=== PATIENT | male | born 1965 | race Caucasian/White ===

== ENCOUNTER 2020-06-06 16:00 | Outpatient (REF) | payer OTHER, SELFPAY ==
--- NOTE | ~2020-06-06 | XR_ITS ---
EXAMINATION: BILATERAL FOOT X-RAY CLINICAL INFORMATION: Pain COMPARISON: None TECHNIQUE: 3 views of both feet FINDINGS: Bone alignment is normal. No fracture or dislocation is seen. There is mild joint space narrowing of both first MTP joint. There is a small radiopaque density probably representing soft tissue calcification adjacent to the right calcaneus seen on the lateral view. There are some small radiopaque densities projecting over the plantar surface of the right foot at the MTP joints seen on the lateral view as well. XR/XR foot RT min 3V IMPRESSION: Mild joint space narrowing at the bilateral first MTP joints.
--- NOTE | ~2020-06-06 | XR_ITS ---
EXAMINATION: BILATERAL FOOT X-RAY CLINICAL INFORMATION: Pain COMPARISON: None TECHNIQUE: 3 views of both feet FINDINGS: Bone alignment is normal. No fracture or dislocation is seen. There is mild joint space narrowing of both first MTP joint. There is a small radiopaque density probably representing soft tissue calcification adjacent to the right calcaneus seen on the lateral view. There are some small radiopaque densities projecting over the plantar surface of the right foot at the MTP joints seen on the lateral view as well. XR/XR foot LT min 3V IMPRESSION: Mild joint space narrowing at the bilateral first MTP joints.
== END 2020-06-06 16:01 | disposition home or self-care (01) ==
LOC: HO.XRAY 16:00
PROVIDERS: PCP Internal Medicine; Visit Provider Internal Medicine
DX: M79.672 Pain in left foot (principal); M79.671 Pain in right foot
CPT/HCPCS: 73630

== ENCOUNTER 2020-06-07 09:09 | Outpatient (REF) | payer OTHER, SELFPAY ==
[2020-06-07 09:37] LABS: MANUAL DIFF FLAG NO
[2020-06-07 09:56] LABS: Basophils Percent Auto 0.6 % (0-2); Eosinophils Absolute Auto 0.2 X10*3/uL (0.0-0.4); Eosinophils Percent Auto 4.8 % (0-4); Hematocrit 47.8 % (42-52); Hemoglobin 15.9 g/dl (14.0-18.0); Imm Gran Abs Auto 0.02 X10*3/uL (0.00-0.03); Imm Gran Pct Auto 0.4 % (0.0-0.4); Lymphocytes Absolute Auto 1.1 X10*3/uL (1.2-4.9); Lymphocytes Percent Auto 21.8 % (20-40); Mean Corpuscular HGB Conc 33.3 g/dl (31.0-36.0); Mean Corpuscular Hemoglobin 30.8 pg (27.0-33.0); Mean Corpuscular Volume 92.6 fL (80-98); Mean Platelet Volume 11.3 fL (9.4-12.4); Monocytes Absolute Auto 0.4 X10*3/uL (0.1-1.2); Monocytes Percent Auto 8.8 % (2-11); Neutrophils Absolute Auto 3.2 X10*3/uL (2.0-8.3); Neutrophils Percent Auto 63.6 % (45-73); Platelet Count 202 X10*3/uL (160-400); Red Blood Count 5.16 X10*6/uL (4.60-5.80); Red Cell Distribution Width 11.9 % (11.0-16.0)
[2020-06-07 10:19] LABS: Alanine Aminotransferase 39 U/L (0-40); Albumin Level 4.3 g/dL (3.5-5.0); Alkaline Phosphatase 68 U/L (39-117); Anion Gap 11 (12-20); Aspartate Amino Transferase 21 U/L (5-37); Bilirubin Total 0.8 mg/dL (0.0-1.0); Blood Urea Nitrogen 18 mg/dL (9-16); Calcium 9.1 mg/dL (8.4-10.2); Carbon Dioxide 30 mmol/L (22-29); Chloride 105 mmol/L (96-108); Cholesterol 181 mg/dL; Estimated Glomerular Filt Rate > 60; Glucose Fasting 98 mg/dL (60-99); HDL Cholesterol 60 mg/dL; LDL Cholesterol Calculated 106 mg/dl; Potassium 4.8 mmol/L (3.3-5.1); Sodium 141 mmol/L (135-145); Total Protein 6.7 g/dL (6.5-8.0); Triglycerides 76 mg/dL
[2020-06-07 10:42] LABS: Prostate Specific Antigen 0.43 ng/mL (<0.05-4.0)
== END 2020-06-07 09:10 | disposition home or self-care (01) ==
LOC: HO.LAB 09:09
PROVIDERS: PCP Internal Medicine; Visit Provider Internal Medicine
DX: Z00.00 Encounter for general adult medical examination without abnormal findings (principal); Z12.5 Encounter for screening for malignant neoplasm of prostate
CPT/HCPCS: 36415; 80053; 80061; 84153; 85025

== ENCOUNTER 2020-06-11 08:02 | Outpatient (REF) | payer OTHER, SELFPAY ==
--- NOTE | 2020-06-11 12:17 | MHC.AU.P13 ---
Adult Audiological Evaluation Date of Visit: 06/11/20 Bait Man Used: Not Applicable Reason for Appointment: Audiologic evaluation due to increasing difficulties hearing and understanding speech. 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 History: History: No Medical History: Experiences frequent congestion Medication List: Multi-vitamin, Glucosamine, Tumeric Otoscopy: Right Ear: Unremarkable Left Ear: Unremarkable Tympanometry: Tympanometry performed due to: To assess integrity of the middle ear system Right Ear: Normal Middle Ear System (Type A) Left Ear: Normal Middle Ear System (Type A) Otoacoustic Emissions Frequency Range Used: 1.6-8 kHz Right Ear Results: Absent Emissions Analysis: Reduced/Absent emissions suggest cochlear dysfunction Left Ear Results: Absent Emissions Analysis: Reduced/Absent emissions suggest cochlear dysfunction Hearing Evaluation: Transducer(s) Used: Insert Earphones Bone Conduction Method: Conventional Audiometry Stimuli Used: Pure Tones Right Ear: Description of Hearing: Normal hearing threshold at 250 Hz sloping to a moderate high frequency sensorineural hearing loss Left Ear: Description of Hearing: Normal hearing threshold at 250 Hz sloping to a moderate-severe high frequency sensorineural hearing loss Speech Recognition Threshold (SRT): Method Used: Monitored Live Voice Stimuli Used: Spondee Words Right Ear: 40 dB HL Left Ear: 40 dB HL Word Discrimination: Method: Recorded Lists Word Lists Used: NU-6 Right Ear: 84% at 65 dB HL 100% at 75 dB HL Left Ear: 76% at 70 dB HL 84% at 80 dB HL Most Comfortable Level (MCL): Right Ear: 65 dB HL Left Ear: 70 dB HL Recommendations: Audiological re-evaluation in one year. Trial with amplification is recommended. Medical clearance from a physician is required before fitting. Selwyn has a pair of [id number] hearing aids worn by his mother. Recommend he schedule an appointment and bring the hearing aids with him to determine if he can use these hearing aids. Diagnosis: Primary Diagnosis: H90.3 Bilateral Sensorineural Hearing Loss Secondary Diagnosis: H93.13 Tinnitus, Bilateral Services Performed: Comprehensive Audiological Evaluation (CPT 63720) Diagnostic Otoacoustic Emissions (CPT 97758, 26+TC) Tympanometry (CPT 29060) Signature: Provider: Carmen Shell, CCC-A
--- NOTE | 2020-06-11 12:20 | MHC.AU.MED ---
Medical Clearance for Hearing Instrumentation Date: 06/11/20 Patient Name: Selwyn Coronado JR Date of : 1965 Primary Care Provider: Referring Provider: Jose Benton MD We have seen your patient on 06/11/20 and have determined that they are a candidate for amplification (See accompanying report). Specifically, they would benefit from: Hearing aid use in both ears There is a statute that addresses Medical Evaluation Requirements prior to fitting a patient with a hearing aid. According to [place] statute 265 CMR:6.03(1), (a) General. Except as provided in 265 CMR 6.03(1)(b), a admission liaison shall not sell a hearing aid unless the prospective user has presented to the admission liaison a written statement signed by a licensed physician that states that the patient's hearing loss has been medically evaluated and the patient may be considered a candidate for a hearing aid. The medical evaluation must have taken place within the preceding six months. Please note: Due to the [place] Statute referenced above, we cannot accept a signature other than that of a licensed physician. BLENDING MACHINE FEEDER and PA signatures cannot be accepted. I am in agreement with the above recommendation. There is no medical contraindication for hearing instrumentation. Physician Signature Date Physician Name (Printed)
== END 2020-06-11 08:03 | disposition home or self-care (01) ==
LOC: HO.SH 08:02
PROVIDERS: Visit Provider Internal Medicine
DX: H90.3 Sensorineural hearing loss, bilateral (principal); H93.13 Tinnitus, bilateral
CPT/HCPCS: 92557; 92567; 92588

== ENCOUNTER 2020-06-14 09:53 | Outpatient (REF) | payer SELFPAY ==
--- NOTE | 2020-06-14 11:48 | MHC.AU.HFU ---
Hearing Instrument Follow-Up- Binaural Date of Visit: 06/14/20 Right Ear: Contact Representative: Phonak Model: Bolero V 50-P Serial Number: [id number] Repair Warranty: Battery Size: 13 Color: Silver Dunlap Tubing: #2 slim tube Type of Dome: Small Power Type of Wax Guard: None Left Ear: Contact Representative: Phonak Model: Bolero V 50-P Serial Number: [id number] Repair Warranty: Battery Size: 13 Color: Silver Dunlap Tubing: #2 slim tube Type of Dome: Small Power Type of Wax Guard: None Follow-Up Summary: Patient brought in his mother's old [place] [facility] [place] Care. Placed slim tubes and domes. Ran feedback test and Real Ear making adjustments to better meet targets. Forgot to turn off Sound Recover during Real Ear measurements so high frequencies are not meeting targets. Activated volume control and Mute program. Practiced battery change, insertion, volume and program change, patient doing well while in office. Provided handouts. Recommendations: Recommendations: Hearing instrument follow-up or maintenance as needed. Please contact our clinic with any questions or concerns. Patient has 2 programming appointments available. He did not want to schedule an appointment at this time. Diagnosis Code(s): Primary Diagnosis: H90.3 Bilateral Sensorineural Hearing Loss Secondary Diagnosis: H93.13 Tinnitus, Bilateral Services Performed: PEÑALOZA Non-Quantity Charges: [facility]AFOC Transfer of Care Signature: Provider: Carmen Shell, [facility]
== END 2020-06-14 09:54 | disposition home or self-care (01) ==
LOC: HO.HAP 09:53
PROVIDERS: Visit Provider Internal Medicine
DX: Z46.1 Encounter for fitting and adjustment of hearing aid (principal); H90.3 Sensorineural hearing loss, bilateral; H93.13 Tinnitus, bilateral
CPT/HCPCS: V5011

== ENCOUNTER 2021-02-25 16:43 | Outpatient (REF) | payer OTHER, SELFPAY ==
[2021-02-25 17:35] LABS: Influenza A PCR NEGATIVE (Negative); Influenza B PCR NEGATIVE (Negative); Resp Syncy Virus RNA Qual PCR NEGATIVE (Negative); SARS COV2 PCR INHOUSE POSITIVE (Negative)
== END 2021-02-25 16:44 | disposition home or self-care (01) ==
LOC: HO.LNP 16:43
PROVIDERS: Visit Provider Nurse Practitioner Family
DX: Z20.822 Contact with and (suspected) exposure to COVID-19 (principal); R09.81 Nasal congestion; R53.83 Other fatigue
CPT/HCPCS: 0241U

== ENCOUNTER 2021-03-11 15:58 | Outpatient (REF) | payer OTHER, SELFPAY ==
[2021-03-11 16:43] LABS: Influenza A PCR NEGATIVE (Negative); Influenza B PCR NEGATIVE (Negative); Resp Syncy Virus RNA Qual PCR NEGATIVE (Negative); SARS COV2 PCR INHOUSE POSITIVE (Negative)
== END 2021-03-11 15:59 | disposition home or self-care (01) ==
LOC: HO.LNP 15:58
PROVIDERS: Visit Provider Internal Medicine
DX: Z20.822 Contact with and (suspected) exposure to COVID-19 (principal); R05.9 Cough, unspecified
CPT/HCPCS: 0241U

== ENCOUNTER 2022-02-18 09:38 | Outpatient (REF) | payer OTHER, SELFPAY ==
--- NOTE | ~2022-02-18 | XR_ITS ---
EXAMINATION: XR SHOULDER, RIGHT CLINICAL INFORMATION: Fall. Pain. COMPARISON: None TECHNIQUE: AP external rotation, Grashey, scapular Y, and axillary views of the right shoulder. FINDINGS: Bone alignment is normal. No fracture or dislocation. The glenohumeral joint is normal. There is arthritis at the acromial clavicular joint. Soft tissues are unremarkable. XR/XR shoulder RT min 2V IMPRESSION: No fracture or dislocation. Arthritis at the acromioclavicular joint.
== END 2022-02-18 09:39 | disposition home or self-care (01) ==
LOC: HO.XRAY 09:38
PROVIDERS: PCP Internal Medicine; Visit Provider Internal Medicine
DX: M25.511 Pain in right shoulder (principal); Z91.81 History of falling
CPT/HCPCS: 73030

== ENCOUNTER 2022-03-25 09:31 | Outpatient (REF) | payer OTHER, SELFPAY ==
[2022-03-25 09:40] LABS: MANUAL DIFF FLAG NO
[2022-03-25 11:06] LABS: Basophils Absolute Auto 0.1 X10*3/uL (0.0-0.2); Eosinophils Absolute Auto 0.2 X10*3/uL (0.0-0.4); Eosinophils Percent Auto 3.7 % (0-4); Hematocrit 48.6 % (42.0-52.0); Hemoglobin 16.6 g/dl (14.0-18.0); Imm Gran Abs Auto 0.03 X10*3/uL (0.00-0.03); Imm Gran Pct Auto 0.6 % (0.0-0.4); Lymphocytes Absolute Auto 1.1 X10*3/uL (1.2-4.9); Lymphocytes Percent Auto 21.7 % (20-40); Mean Corpuscular HGB Conc 34.2 g/dl (31.0-36.0); Mean Corpuscular Volume 90.7 fL (80.0-98.0); Mean Platelet Volume 11.4 fL (9.4-12.4); Monocytes Absolute Auto 0.5 X10*3/uL (0.1-1.2); Monocytes Percent Auto 10.4 % (2-11); Neutrophils Absolute Auto 3.1 x10*3/uL (2.0-8.3); Neutrophils Percent Auto 62.6 % (45-73); Platelet Count 181 X10*3/uL (160-400); Red Blood Count 5.36 X10*6/uL (4.60-5.80); Red Cell Distribution Width 11.8 % (11.0-16.0); White Blood Count 4.9 X10*3/uL (4.8-10.8)
[2022-03-25 11:43] LABS: Alanine Aminotransferase 39 U/L (0-40); Anion Gap 13 (12-20); Aspartate Amino Transferase 24 U/L (5-37); Bilirubin Total 0.6 mg/dL (0.0-1.0); Blood Urea Nitrogen 18 mg/dL (9-16); Calcium 9.2 mg/dL (8.4-10.2); Carbon Dioxide 29 mmol/L (22-29); Chloride 106 mmol/L (96-108); Estimated Glomerular Filt Rate > 60; Glucose Fasting 95 mg/dL (60-99); Potassium 4.6 mmol/L (3.3-5.1); Sodium 143 mmol/L (135-145)
[2022-03-25 11:44] LABS: Albumin Level 4.3 g/dL (3.5-5.0); Alkaline Phosphatase 71 U/L (39-117); Cholesterol 179 mg/dL; HDL Cholesterol 58 mg/dL; LDL Cholesterol Calculated 108 mg/dl; Total Protein 6.5 g/dL (6.5-8.0); Triglycerides 65 mg/dL
== END 2022-03-25 09:32 | disposition home or self-care (01) ==
LOC: HO.LAB 09:31
PROVIDERS: PCP Internal Medicine; Visit Provider Internal Medicine
DX: Z00.00 Encounter for general adult medical examination without abnormal findings (principal); Z12.5 Encounter for screening for malignant neoplasm of prostate
CPT/HCPCS: 36415; 80053; 80061; 84153; 85025

== ENCOUNTER 2024-09-11 08:47 | Outpatient (AMB) | payer OTHER, SELFPAY ==
--- NOTE | 2024-09-11 08:41 | MHC.PC.OV ---
Vital Signs 09/11/24 08:53 Height 5 ft 7.5 in Weight 186 lb BMI 28.7 BP 134/82 Blood Pressure Location Lt brachial Position Sitting Pulse 96 Pulse Source Pulse Oximeter Temp 98.1 F Temp Source Axillary Pulse Oximetry (%) 98 Oxygen Delivery Method Room Air Intake Visit Reasons: Annual Tea And Spice Supervisor Required: No Accompanied by: Self / Same As Patient Allergies No Known Allergies Allergy (Verified 09/11/24 09:25) Medication List - Last Reconciled 09/11/24 by Michael Melendez MD fluticasone propionate 50 mcg/actuation (Flonase Allergy Relief) 1 spray intranasal DAILY Tobacco use date assessed: 09/11/24 Dental Screening Dental Screen Date: 09/11/24 Did you have a dental visit in the last 12 months?: Yes Did you have a dental problem in the last 6 months where you did not have access to dental care?: No [facility] Medical History (Updated 09/11/24 @ 09:11 by Michael Melendez MD) Osteoarthritis Hyperlipidemia Surgical History History of colonoscopy (~11/26/17) Family History (Updated 09/11/24 @ 08:57 by Meryl Alberts MA) Mother No problems noted. Father No problems noted. Social History Housing: House Patient Tobacco Use Status: Never used Tobacco e-Cigarette/Vaping Use: Never Used service: No Current occupational status: employed Cognitive needs: No Hearing needs: Yes (bilateral hearing aids) Vision needs: Yes (reading glasses) Questionnaire PHQ-9 Over the last 2 weeks, how often have you been bothered by any of the following problems? 1. Little interest or pleasure in doing things: not at all 2. Feeling down, depressed, or hopeless: not at all 3. Trouble falling or staying asleep, or sleeping too much: not at all 4. Feeling tired or having little energy: not at all 5. Poor appetite or overeating: not at all 6. Feeling bad about yourself - or that you are a failure or have let yourself or your family down: not at all 7. Trouble concentrating on things, such as reading the newspaper or watching television: not at all 8. Moving or speaking so slowly that other people could have noticed. Or the opposite - being so fidgety or restless that you have been moving around a lot more than usual: not at all 9. Thoughts that you would be better off or of hurting yourself in some way: not at all Total score: 0 Depression Screening Interpretation: Negative Depression Screening Done: Yes Source: Developed by Drs. Barrett Arias, Joycelyn Love, Gabe Laboy and colleagues, with an educational kalin from [employer]. Thrive Questionnaire Date Thrive assessed: 09/11/24 I am a: Patient Within the past 12 months, did the food you bought not last and you didn't have the money to get more?: Never true Within the past 12 months, did you worry whether your food would run out before you got money to buy more?: Never true Do you have trouble paying for medicines?: No Do you have trouble getting transportation to medical appointments?: No Do you have trouble paying your heating and electricity bill?: No Do you have trouble taking care of your child, family member or friend?: No Do you have trouble with day-to-day activities such as bathing, preparing meals, shopping, managing finances, etc.?: No Are you currently unemployed and looking for a job?: No Are you interested in more education?: No Currently or been in a relationship where the following occur: No concerns reported THRIVE Score: 0 AUDIT C Alcohol Use Questionnaire (AUDIT-C) 1. How often do you have a drink containing alcohol?: Monthly or less 2. How many drinks containing alcohol do you have on a typical day when you are drinking?: 1 or 2 3. How often do you have six or more drinks on one occasion?: Less than monthly Total Score: 2 LUIS-7 AMB Questionnaire LUIS-7 Date LUIS - 7 assessed: 09/11/24 Feeling nervous, anxious, or on edge: 0 = Not at all Not being able to stop or control worryin = Not at all Worrying too much about different things: 0 = Not at all Trouble relaxin = Not at all Being so restless that it is hard to sit still: 0 = Not at all Becoming easily annoyed or irritable: 0 = Not at all Feeling afraid as if something awful might happen: 0 = Not at all Total LUIS-7 score (0-4 normal; 5-9 mild; 10-14 moderate; 15-21 severe): 0 Source: Developed by Drs. Barrett Arias, Joycelyn Love, Gabe Laboy and colleagues, with an educational kalin from [employer]. Physical exam (Primary Care) Vital Signs: Last Vital Signs Temp 98.1 F 09/11/24 08:53 Pulse 96 09/11/24 08:53 BP 134/82 09/11/24 08:53 Pulse Ox 98 09/11/24 08:53 Oxygen Delivery Method Room Air 09/11/24 08:53 Care Plan Goal for BP management: BP is in range BMI result Body Mass Index 28.7 Tobacco/Smoking Status: Tobacco use Status Tobacco use date assessed 09/11/24 09/11/24 08:42 Patient Tobacco Use Status Never used Tobacco 09/11/24 08:42 e-Cigarette/Vaping Use Never Used 09/11/24 08:42 PHQ-9: PHQ-9 Score PHQ-9: Total score 0 09/11/24 08:42 Depression Screening Interpretation: Negative Thrive Assessment: Date of Thrive Assessment Date Thrive assessed 09/11/24 09/11/24 08:42 Currently or been in a relationship where the following occur: No concerns reported Advance Care Planning discussion: Exists, not on file Date of discussion: 09/11/24 Who was present: Patient Forms completed: Health Care Proxy and MOLST Time spent: 1-15 minutes, not on file Actual minutes spent: 5 Coding Level of Care Code New Pt Level 4 (72892) Complex EM visit Add On G2211 Diagnoses Hyperlipidemia E78.5 Osteoarthritis M19.90 Additional Codes Vital Signs *Quality* - Advance Care Planning discussion: Exists, not on file ([id number]) Vital Signs *Quality* - Time spent: 1-15 minutes, not on file ([id number]) Assessment & Plan Assessment & Plan (1) Hyperlipidemia: Code(s): E78.5 - Hyperlipidemia, unspecified Category: Medical Plan: BW has been ordered. Will call with results (2) Osteoarthritis: Code(s): M19.90 - Unspecified osteoarthritis, unspecified site Category: Medical Plan: ES Tylenol suggested. If sx do not improve, to follow up here. Plan History of Present Illness - The patient is a 58-year-old male presenting with management of osteoarthritis and musculoskeletal injuries. - Osteoarthritis in the feet is managed with ibuprofen, though the patient is advised to try Extra Strength Tylenol. - A rotator cuff tear was diagnosed with x-ray, managed with physical therapy, resulting in improved range of motion. - The patient reports a triceps tendon tear, manageable without significant intervention. - ACL and meniscus tears in the knee have been present for 15 years, with surgical intervention deferred. - The patient remains active in construction work, performing daily activities without significant limitation. - Vision impairment is noted, with corrective lenses in use. - A history of colonic polyps necessitates a follow-up colonoscopy. 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 - Family status: The patient is and lives with his . Review of Systems - Musculoskeletal: Reports arthritis in feet, rotator cuff tear, triceps tendon tear, ACL and meniscus tears. - Neurological: Denies any significant weakness or functional limitation. - Gastrointestinal: Denies abdominal pain. - Ophthalmologic: Reports vision impairment, uses corrective lenses. Physical Exam General: Cooperative and healthy appearing Nutritional Appearance: Well nourished Orientation/consciousness: Patient oriented x3 Limitations: No limitations Head: Normal to inspection General: Appearance normal, both eyes and all related structures Neck: Normal visual inspection Chest: Normal palpation of entire chest wall Respiratory: N ormal respiratory effort Neurology: Patient oriented x3, but reports vision is getting worse and is wearing glasses. Results Plan 1. Osteoarthritis - The patient is advised to switch from ibuprofen to Extra Strength Tylenol for pain management. 2. Rotator Cuff Tear - Managed with physical therapy, resulting in improved range of motion. 3. Triceps Tendon Tear - The condition is manageable without significant intervention. 4. Acl Tear - Surgical intervention is deferred, with the patient managing symptoms conservatively. 5. Meniscus Tear - Surgical intervention is deferred, with the patient managing symptoms conservatively. 6. Vision Impairment - The patient uses corrective lenses to manage vision impairment. 7. Preventative Care: Colonoscopy - A follow-up colonoscopy is recommended due to a history of colonic polyps. Discussion Notes I discussed with the patient the importance of managing osteoarthritis with appropriate medication, suggesting a switch to Extra Strength Tylenol to minimize potential side effects of ibuprofen. We reviewed the management of his rotator cuff tear, emphasizing the benefits of physical therapy. I advised on the conservative management of his knee injuries, given his current functional status. We also discussed the need for a follow-up colonoscopy due to his history of polyps, and I provided guidance on obtaining corrective lenses for his vision impairment. Patient Instructions - Switch to Extra Strength Tylenol for pain management as needed. - Continue physical therapy exercises for shoulder strength and mobility. - Schedule a follow-up colonoscopy due to history of polyps. - Use corrective lenses as prescribed for vision impairment. Orders: Orders Thyroid Stimulating Hormone Today E78.5 - Hyperlipidemia, unspecified, M19.90 - Unspecified osteoarthritis, unspecified site Lipid Panel Today E78.5 - Hyperlipidemia, unspecified, M19.90 - Unspecified osteoarthritis, unspecified site Liver Panel Today E78.5 - Hyperlipidemia, unspecified, M19.90 - Unspecified osteoarthritis, unspecified site UA and rflx microscopic Today E78.5 - Hyperlipidemia, unspecified, M19.90 - Unspecified osteoarthritis, unspecified site Prostate Specific Antigen Scr Today E78.5 - Hyperlipidemia, unspecified Basic Metabolic Panel Today E78.5 - Hyperlipidemia, unspecified, M19.90 - Unspecified osteoarthritis, unspecified site Complete Blood Count no Diff Today E78.5 - Hyperlipidemia, unspecified, M19.90 - Unspecified osteoarthritis, unspecified site Referrals Gastroenterology Referral Z12.11 - Encounter for screening for malignant neoplasm of colon Medications: New fluticasone propionate 50 mcg/actuation (Flonase Allergy Relief) administer into each nostril 1 spray intranasal DAILY 9.9 mL 1RF
[2024-09-11 08:53] VITALS: BP 134/82; PULSE 96; TEMP 36.7; O2SAT 98; BMI 28.7
--- OUTSIDE RECORDS SUMMARY | 2024-09-11 09:01 | XMS_ITS | Patient Health Record ---
Author Organization [facility] Address [address] [place] [address] Care Team Providers Care Lehr Cutter Name Role Phone Jose Benton MD Primary Care Provider Karthikeyan Vernon Jr Reason For Referral No Information Medications Medication SIG (Take, Route, Frequency, Duration) Notes Start Date End Date Status Glucosamine Chondroitin Joint Active Multi Vitamin/Minerals Active Golytely 236 GM as directed before colonoscopy Orally every 15 minutes for 1 day(s) Active Social History Tobacco Use: Social History Observation Description Date Details (start date - stop date) Never Smoker NA - NA Tobacco Use/Smoking Question Answer Notes Patient is a nonsmoker Alcohol Screen Question Answer Notes Did you have a drink contain ing alcohol in the past year? Yes How often did you have a dri nk containing alcohol in the past year? 4 or more times a week (4 points) How many drinks did you have on a typical day when you were drinking in the past year? 1 or 2 drinks (0 point) How often did you have 6 or more drinks on one occasion in the past year? Never (0 point) Points 4 Interpretation Positive Problems Problem Type SNOMED Code ICD Code Onset Dates Problem Status W/U Status Risk Notes Problem [id number] Colon cancer screening (Z12.11) Active confirmed Plan Of Treatment Future Test Test Name Order Date COLONOSCOPY 09/17/2017 Insurance Providers Payer Name Payer Address Payer Phone Subscriber Number Group Number Insured Name Patient Relationship to Insured Coverage Start Date Coverage End Date [facility] [address] [address] [place], [place] [id number] KRYSTAL GALLOWAY Self - patient is the insured Medical (General) History Medical History History ICD Code Denies [place],DM,CVA,Lung disease,renal dise ase Surgical History Surgery Date(Month/Year) hernia repair 1970
--- OUTSIDE RECORDS SUMMARY | 2024-09-11 09:01 | XMS_ITS | Patient Health Record ---
Author Organization [facility] Address [address] [place] [address] Care Team Providers Care Manager Economic Name Role Phone Jose Benton MD Primary Care Provider Camila Ladd Unavailable [phone] Allergies No Known Allergies Reason For Referral No Information Medications Medication SIG (Take, Route, Frequency, Duration) Notes Start Date End Date Status Glucosamine 500 MG 1 capsule with a darvin l Orally Three times a day; Duration: 30 day(s) Not-Taking Turmeric Curcumin 5-1000 MG as directed Orally Active Multi-Vitamin - 1 tablet Orally Once a day; Duration: 30 day(s) Active Ibuprofen Active Social History Tobacco Use: Social History Observation Description Date Details (start date - stop date) Never Smoker NA - NA Tobacco Use/Smoking Question Answer Notes Are you a: nonsmoker Alcohol Screen Question Answer Notes Did you have a drink contain ing alcohol in the past year? Yes How often did you have a dri nk containing alcohol in the past year? 4 or more times a week (4 points) How often did you have 6 or more drinks on one occasion in the past year? Daily or almost daily (4 points) Points 8 Interpretation Positive Tobacco use other than smoking: Question Answer Notes Are you an other tobacco user? 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 [address] [phone] [id number] Amber Coronado Spouse - patient is the spouse of the insured Medical (General) History Medical History History ICD Code Back,Hip,and Knee pain Sciatica Warts Surgical History Surgery Date(Month/Year) hernia [facility] Repair
== END 2024-09-11 09:23 | disposition home or self-care (01) ==
LOC: HO.HMCHD 08:48
PROVIDERS: PCP Internal Medicine; Visit Provider Internal Medicine
DX: E78.5 Hyperlipidemia, unspecified (principal); M19.90 Unspecified osteoarthritis, unspecified site; Z00.00 Encounter for general adult medical examination without abnormal findings

== ENCOUNTER 2024-09-12 09:23 | Outpatient (REF) | payer OTHER, SELFPAY ==
--- OUTSIDE RECORDS SUMMARY | 2024-09-12 09:51 | XMS_ITS | Patient Health Record ---
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) (9480531265330455 7) Pes cavus of left foot (Q66.72) Active confirmed Problem Congenital pes cavus of right foot (disorder) (6294523436610533 1) Pes cavus of right foot (Q66.71) Active confirmed Plan Of Treatment Pending Test Test Name Order Date X ray : Foot, left 3V 03/24/2022 X ray : Foot, right 3V 03/24/2022 Insurance Providers Payer Name Payer Address Payer Phone Subscriber Number Group Number Insured Name Patient Relationship to Insured Coverage Start Date Coverage End Date [facility] [address] [place] [address] [phone] [id number] Amber Coronado Spouse - patient is the spouse of the insured Medical (General) History Medical History History ICD Code Back,Hip,and Knee pain Sciatica Warts Surgical History Surgery Date(Month/Year) hernia A.C.L. Repair
--- OUTSIDE RECORDS SUMMARY | 2024-09-12 09:51 | XMS_ITS | Patient Health Record ---
Author Organization [facility] Address [address] [place] [address] Care Team Providers Care Latrine Cleaner Name Role Phone Jose Benton MD Primary Care Provider Karthikeyan Vernon Jr [phone] Reason For Referral No Information Medications Medication [...] Problem Status W/U Status Risk Notes Problem [id number] Colon cancer screening (Z12.11) Active confirmed Plan Of Treatment Future Test Test Name Order Date COLONOSCOPY 09/17/2017 Insurance Providers Payer Name Payer Address Payer Phone Subscriber Number Group Number Insured Name Patient Relationship to Insured Coverage Start Date Coverage End Date [facility] Personally [facility] [address] [address] [place], [place] [id number] [id number] KRYSTAL GALLOWAY Self - patient is the insured Medical (General) History Medical History History ICD Code Denies AR,DM,CVA,Lung disease,renal dise ase Surgical History Surgery Date(Month/Year) hernia repair 1970
[2024-09-12 10:03] LABS: Appearance Urine Clear; Glucose Urine UA Negative (Negative); PH 6.5 (5.0-9.0); Specific Gravity - Urine 1.020 (1.005-1.025)
[2024-09-12 10:08] LABS: Hematocrit 47.1 % (42.0-52.0); Hemoglobin 16.3 g/dl (14.0-18.0); Mean Corpuscular HGB Conc 34.6 g/dl (31.0-36.0); Mean Corpuscular Hemoglobin 30.9 pg (27.0-33.0); Mean Corpuscular Volume 89.4 fL (80.0-98.0); NRBC Abs Auto 0.000 X10*3/uL (0.0-0.012); NRBC Pct Auto 0.0 /100WBC (0.0-0.2); Platelet Count 189 X10*3/uL (160-400); Red Blood Count 5.27 X10*6/uL (4.60-5.80); White Blood Count 5.4 X10*3/uL (4.8-10.8)
[2024-09-12 11:04] LABS: Alanine Aminotransferase 32 U/L (0-40); Albumin Level 4.4 g/dL (3.5-5.0); Alkaline Phosphatase 68 U/L (39-117); Anion Gap 10 (12-20); Aspartate Amino Transferase 23 U/L (5-37); Blood Urea Nitrogen 20 mg/dL (9-16); Calcium 8.8 mg/dL (8.4-10.2); Carbon Dioxide 27 mmol/L (22-29); Chloride 106 mmol/L (96-108); Cholesterol 190 mg/dL (<200); Estimated Glomerular Filt Rate > 60; HDL Cholesterol 57 mg/dL (>40); Potassium 4.2 mmol/L (3.3-5.1); Sodium 139 mmol/L (135-145); Total Protein 6.5 g/dL (6.5-8.0); Triglycerides 119 mg/dL (<150)
[2024-09-12 11:20] LABS: Thyroid Stimulating Hormone 1.35 uIU/mL (0.32-4.0)
== END 2024-09-12 09:24 | disposition home or self-care (01) ==
LOC: HO.10HDL 09:23
PROVIDERS: Visit Provider Internal Medicine
DX: Z12.5 Encounter for screening for malignant neoplasm of prostate (principal); E78.5 Hyperlipidemia, unspecified; M19.90 Unspecified osteoarthritis, unspecified site
CPT/HCPCS: 36415; 80048; 80061; 80076; 81003; 84153; 84443; 85027

== ENCOUNTER 2024-09-20 08:48 | Outpatient (AMB) | payer OTHER, SELFPAY ==
--- NOTE | 2024-09-20 08:49 | A.OFFPC_ITS ---
Intake Visit Reasons: TV Allergies No Known Allergies Allergy (Verified 09/20/24 08:50) Tobacco use date assessed: 09/11/24 Dental Screening Dental Screen Date: 09/11/24 HPI TV HPI Details 58-year-old male wishes to discuss his m edical health via telehealth. Routine blood work done during the previous office visit showed elevated LDL numbers. Patient initially agreed to start statins and later expressed reluctance. He would like to try the route of diet and exercise before starting statins. He is able to function and do all activities of daily living. [facility] Medical History Osteoarthritis Hyperlipidemia Surgical History History of colonoscopy (~11/26/17) Family History Mother No problems noted. Father No problems noted. Social History Housing: House Patient Tobacco Use Status: Never used Tobacco e-Cigarette/Vaping Use: Never Used service: No Current occupational status: employed Cognitive needs: No Hearing needs: Yes (bilateral hearing aids) Vision needs: Yes (reading glasses) Questionnaire Thrive Questionnaire Date Thrive assessed: 09/11/24 LUIS-7 AMB Questionnaire LUIS-7 Date LUIS - 7 assessed: 09/11/24 Source: Developed by Drs. Barrett Arias, Joycelyn oLve, Gabe Laboy and colleagues, with an educational kalin from [employer]. Physical exam (Primary Care) Tobacco/Smoking Status: Tobacco use Status Tobacco use date assessed 09/11/24 09/20/24 08:51 Patient Tobacco Use Status Never used Tobacco 09/20/24 08:51 e-Cigarette/Vaping Use Never Used 09/20/24 08:51 Thrive Assessment: Date of Thrive Assessment Date Thrive assessed 09/11/24 09/20/24 08:51 Telehealth Telehealth Telehealth Platform: [facility] Location of provider rendering services: practice address Location of patient: address on file Patient Identification confirmed using: Name, : Yes Telehealth method: voice only Patient verbally consented to treatment: Yes Patient verbally consented to billing insurance company: Yes Patient informed of any privacy concerns related to visit: Yes Minutes spent on Phone/Video with Pt.: 15 Coding Level of Care Code Tele Est Pt Level 3 (75064) Complex EM visit Add On G2211 Diagnoses Hyperlipidemia E78.5 Assessment & Plan Assessment & Plan (1) Hyperlipidemia: Code(s): E78.5 - Hyperlipidemia, unspecified Category: Medical Plan: Spent 15 minutes, discussing the risk factors and possible outcomes of hyper cholesterolemia. Patient is a nonsmoker, no history of diabetes and has no cardiac history. There is no family history of heart disease. I agreed that we can defer starting the medications for 6 months. Counseling on the importance of a proper diet and exercise done.
--- OUTSIDE RECORDS SUMMARY | 2024-09-20 08:58 | XMS_ITS | Patient Health Record ---
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) (0827193483194838 7) Pes cavus of left foot (Q66.72) Active confirmed Problem Congenital pes cavus of right foot (disorder) (7938829856435741 1) Pes cavus of right foot (Q66.71) Active confirmed Plan Of Treatment Pending Test Test Name Order Date X ray : Foot, left 3V 03/24/2022 X ray : Foot, right 3V 03/24/2022 Insurance Providers Payer Name Payer Address Payer Phone Subscriber Number Group Number Insured Name Patient Relationship to Insured Coverage Start Date Coverage End Date [facility] [address] [place] [address] [id number] Amber Coronado Spouse - patient is the spouse of the insured Medical (General) History Medical History History ICD Code Back,Hip,and Knee pain Sciatica Warts Surgical History Surgery Date(Month/Year) hernia A.C.L. Repair
--- OUTSIDE RECORDS SUMMARY | 2024-09-20 08:58 | XMS_ITS | Patient Health Record ---
Author Organization [facility] Address [address] [place] [address] Care Team Providers Care Dog Bather Name Role Phone GUIDO CLINE Primary Care Provider Karthikeyan Meehan Jr [phone] Reason For Referral No Information Medications Medication [...] Problem Status W/U Status Risk Notes Problem [id number] Colon cancer screening (Z12.11) Active confirmed Plan Of Treatment Future Test Test Name Order Date COLONOSCOPY 09/17/2017 Next Appt Details Provider Name:Karthikeyan molina Jr, 01/01/2025 10:00:00 AM, [address], [address], [place], [address], Insurance Providers Payer Name Payer Address Payer Phone Subscriber Number Group Number Insured Name Patient Relationship to Insured Coverage Start Date Coverage End Date [facility] [address] [facility] [place], [place] [phone] [id number] KRYSTAL GALLOWAY Self - patient is the insured Medical (General) History Medical History History ICD Code Denies UT,DM,CVA,Lung disease,renal dise ase Surgical History Surgery Date(Month/Year) hernia repair 1969
== END 2024-09-20 09:43 | disposition home or self-care (01) ==
LOC: HO.HMCHD 08:48
PROVIDERS: PCP Internal Medicine; Visit Provider Internal Medicine
DX: E78.5 Hyperlipidemia, unspecified (principal)

== ENCOUNTER 2025-01-09 09:39 | Day surgery (SDC) | payer OTHER, SELFPAY ==
--- OUTSIDE RECORDS SUMMARY | 2025-01-01 06:00 | XMS_ITS ---
Author Organization [facility] Address [address] [place] [address] Care Team Providers Care Commissary Officer Name Role Phone MARLYN, KARTIK Primary Care Provider Karthikeyan Meehan Jr Unavailable [phone] REASON FOR VISIT Patient presents today for colon screening Medications Medication SIG (Take, Route, Frequency, Duration) Notes Start Date End Date Status Multi Vitamin/Minerals Active Glucosamine Chondroitin Joint Active Golytely 236 GM as directed before colonoscopy Orally every 15 minutes; Duration: 1 day(s) Active Immunizations Vaccine Route Administration Date Status Comme nts Influenza Unknown 01/01/2025 Refused Social History Tobacco Use: Social History Observation [...] Problem Status W/U Status Risk Notes Problem Screening for malignant neoplasm of colon (763905836) Encounter for screening for malignant neoplasm of colon (Z12.11) Active confirmed Problem History of adenomatous polyp of colon (035742650) History of adenomatous polyp of colon (Z86.0101) Active confirmed Problem Preprocedural examination (651833894265934) Preprocedural examination (Z01.818) Active confirmed Vital Signs Temperature 97.4 degrees Fahrenheit 01/02/20 25 Blood pressure systolic 001 mm Hg 01/02/20 25 Blood pressure diastolic 01 mm Hg 025 Height 68 in 01/01/2025 Weight 183.0 lbs 01/01/2025 BMI 27.82 kg/m2 01/01/2025 Encounters Encounter Location Date Provider Diagnosis [facility] [address] [place] [address] 01/01/2025 Karthikeyan Brown Jr Encounter for screening for malignant neoplasm of colon Z12.11 ; Preprocedural examination Z01.818 and History of adenomatous polyp of colon Z86.0101 Assessments Encounter Date Diagnosis (ICD Code) Assessment Notes Treatment Notes Treatment Clinical Notes Section Notes 01/01/2025 Encounter for screening for malignant neoplasm of colon (ICD-10 - Z12.11) We discussed colonoscopy today. We discussed risks and benefits of the procedure today. He understands and agrees to proceed. This will be scheduled at his convenience. 01/01/2025 Preprocedural examination (ICD-10 - Z01.818) We discussed colonoscopy today. We discussed risks and benefits of the procedure today. He understands and agrees to proceed. This will be scheduled at his convenience. 01/01/2025 History of adenomatous polyp of colon (ICD-10 - Z86.0101) We discussed colonoscopy today. We discussed risks and benefits of the procedure today. He understands and agrees to proceed. This will be scheduled at his convenience. Plan Of Treatment Future Test Test Name Order Date COLONOSCOPY 01/01/2025 Next Appt Details Follow Up: 1 Year, Reason: Provider Name:Karthikeyan molina Jr, 01/09/2025 11:20:00 AM, [address] [facility] , [place], [place], [id number], Progress Notes * KRYSTAL GALLOWAY FDOB:1965 (59 yo M)Acc No.[id number]:01/01/2025 Progress Notes Patient: KRYSTAL CRENSHAW Provider: Muna Brown MD :1965 A ge:59 Y S ex:Male Date:01/01/2025 Address:[address] [place] [address] Pcp:GUIDO CLINE Subjective: * Chief Complaints: * 1 . Patient presents today for colon screening. * HPI: N ew symptom(s): Mr. Galloway is seen today for colorectal cancer screening. Previous colonoscopy in 2018 showed 2 tubular adenomas. He is due for follow-up. He has no symptoms. * ROS: G eneral/Constitutional: Change in appetite d enies. F atigue d enies. ? E NT: Patient denies d ifficulty swallowing. R espiratory: Patient denies s hortness of breath. C ardiovascular: Patient denies c hest pain. G astrointestinal: Comments S ee HPI for details. G enitourinary: Difficulty urinating d enies. I ncontinence d enies. M usculoskeletal: Patient denies m uscle aches. S kin: Patient denies p ruritis. N eurologic: Patient denies l ow back pain. P sychiatric: Patient denies m ental or physical abuse. * Medical History: H yperlipidemia, Osteoarthritis. * Surgical History: h ernia repair 1969. * Family History: F ather: , diagnosed with Heart disease. M other: alive, diagnosed with Diabetes.? no family hx of colon or liver ca. * Social History: T obacco Use: T obacco Use/Smoking P atient is a n onsmoker. D rugs/Alcohol: A lcohol Screen D id you have a drink containing alcohol in the past year? Y es, H ow often did you have a drink containing alcohol in the past year? 4 or more times a week (4 points), H ow many drinks did you have on a typical day when you were drinking in the past year??1 or 2 drinks (0 point), H ow often did you have 6 or more drinks on one occasion in the past year? N ever (0 point), P oints 4 , I nterpretation P ositive. M iscellaneous: M arital status: . Occupation: caprenter. * Medications: T aking Glucosamine Chondroitin Joint , Taking Multi Vitamin/Minerals , Taking Golytely 236 GM Solution Reconstituted as directed before colonoscopy Orally every 15 minutes , Medication List reviewed and reconciled with the patient Objective: * Vitals: W t:183.0lbs, Ht: 68 in, BMI:27.82Index, BP:001/01mm Hg, Temp:97.4, Wt-k.01. * Examination: G eneral Examination: GENERAL APPEARANCE: i n no acute distress. HEAD: n ormocephalic. EYES: s clera non-icteric. ORAL CAVITY: m ucosa moist. NECK/THYROID: n o lymphadenopathy. SKIN: a nicteric. HEART: S 1, S2 normal, no murmurs. LUNGS: c lear to auscultation bilaterally. CHEST: n ormal shape and expansion. ABDOMEN: s oft, nontender, nondistended, bowel sounds present, no organomegaly . EXTREMITIES: n o clubbing, cyanosis, or edema. PSYCH: c ognitive function intact. Assessment: * Assessment: 1. P reprocedural examination - Z01.818 (Primary) 2 . E ncounter for screening for malignant neoplasm of colon - Z12.11 3 . H istory of adenomatous polyp of colon - Z86.0101 We discussed colonoscopy tod ay. We discussed risks and benefits of the procedure today. He understands and agrees to proceed. This will be scheduled at his convenience. Plan: * Treatment: 2. E ncounter for screening for malignant neoplasm of colon P rocedure: COLONOSCOPY (Ordered for 01/01/2025) 3. H istory of adenomatous polyp of colon P rocedure: COLONOSCOPY (Ordered for 01/01/2025) * Immunizations: Influenza (Not administered - Refused: Patient decision) * Procedure Codes: 3 017F COLORECTAL CA SCREEN DOC REV, 1036F TOBACCO NON-USER, G8785 BP SCR NOT PRFRM REC REASON NOS * Preventive Medicine: Counseling: C are goal follow-up plan: A arthur Normal BMI Follow-up D ietary management education, guidance, and counseling, B IN management provided Y es. * Follow Up: 1 Year * * Sign off status: Completed true * Provider: Muna Brown MD Date: Generated for Dimitri cooley/Chet/eTransmitting on: 04:05 PM EDT History and Physical Notes * HPI (History of Present Illness) Category Sub-Category Detail Notes Category Not es New symptom(s) Mr. Galloway is se en today for colorectal cancer screening. Previous colonoscopy in 2018 showed 2 tubular adenomas. He is due for follow-up. He has no symptoms. Examination Category Sub-Category Detail Notes Category Not es General Examination GENERAL APPEARANCE: in no acute di stress HEAD: normocephalic EYES: sclera non-icteric NECK/THYROID: no lymphadenopathy HEART: S1, S2 normal, no mu rmurs CHEST: normal shape and exp ansion LUNGS: clear to auscultatio n bilaterally ABDOMEN: soft, nontender, non distended, bowel sounds present, no organomegaly SKIN: anicteric EXTREMITIES: no clubbing, cyanosi s, or edema PSYCH: cognitive function i ntact ORAL CAVITY: mucosa moist
--- OUTSIDE RECORDS SUMMARY | 2025-01-01 16:05 | XMS_ITS | Patient Health Record ---
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) (2172854399410057 7) Pes cavus of left foot (Q66.72) Active confirmed Problem Congenital pes cavus of right foot (disorder) (3566521170464458 1) Pes cavus of right foot (Q66.71) Active confirmed Plan Of Treatment Pending Test Test Name Order Date X ray : Foot, left 3V 03/24/2022 X ray : Foot, right 3V 03/24/2022 Insurance Providers Payer Name Payer Address Payer Phone Subscriber Number Group Number Insured Name Patient Relationship to Insured Coverage Start Date Coverage End Date [facility] [address] [place] [address] [phone] [id number] Amber Coronado Spouse - patient is the spouse of the insured Medical (General) History Medical History History ICD Code Back,Hip,and Knee pain Sciatica Warts Surgical History Surgery Date(Month/Year) hernia A.C.L. Repair
--- OUTSIDE RECORDS SUMMARY | 2025-01-01 16:05 | XMS_ITS | Patient Health Record ---
Author Organization [facility] Address [address] [place] [address] Care Team Providers Care Print Graphic Designer Name Role Phone GUIDO CLINE Primary Care Provider Karthikeyan Meehan Jr Unavailable Reason For Referral No Information Medications Medication [...] Problem Screening for malignant neoplasm of colon (112136139) Encounter for screening for malignant neoplasm of colon (Z12.11) Active confirmed Problem Preprocedural examination (532423252295854) Preprocedural examination (Z01.818) Active confirmed Problem History of adenomatous polyp of colon (069847513) History of adenomatous polyp of colon (Z86.0101) Active confirmed Vital Signs Temperature 97.4 degrees Fahrenheit 01/01/2025 Blood pressure diastolic 01 mm Hg 01/01/2025 Height 68 in 01/01/2025 Blood pressure systolic 001 mm Hg 01/01/2025 Weight 183.0 lbs 01/01/2025 BMI 27.82 kg/m2 01/01/2025 Encounters Encounter Location Date Provider Diagnosis [facility] [address] [facility] [address] [place] [address] 01/01/2025 Karthikeyan Brown Jr Encounter for screening for malignant neoplasm of colon Z12.11 ; Preprocedural examination Z01.818 and History of adenomatous polyp of colon Z86.0101 [facility] [address] [facility] [address] [place] [address] 01/01/2025 Karthikeyan Brown Jr Assessments Encounter Date Diagnosis (ICD Code) Assessment [...] Test Test Name Order Date COLONOSCOPY 09/17/2017 COLONOSCOPY 01/01/2025 Next Appt Details Provider Name:Karthikeyan molina Jr, 01/09/2025 11:20:00 AM, [address] [facility] , [place], [place], [phone], Insurance Providers Payer Name Payer Address Payer Phone Subscriber Number Group Number Insured Name Patient Relationship to Insured Coverage Start Date Coverage End Date [facility] [address] [place] [phone] [id number] KRYSTAL GALLOWAY Self - patient is the insured Medical (General) History Medical History History ICD Code Hyperlipidemia Osteoarthritis Surgical History Surgery Date(Month/Year) hernia repair 1969
[2025-01-05 14:46] VITALS: BMI 27.8
--- NOTE | 2025-01-08 08:44 | HO.ANESPROP2 ---
Documented by User: Tomasa Lux NP 01/08/25 08:44 HPI - Anesthesia Eval Consult details Narrative: 59yo M for Colonoscopy [facility] Active Problems Active Problems: All Active Problems Osteoarthritis (Acute) Hyperlipidemia (Acute) Past Medical History Medical History Osteoarthritis Hyperlipidemia Family History Family History Mother No problems noted. Father No problems noted. Surgical History Surgical History Hx of hernia repair History of colonoscopy (~11/26/17) Social History Social History Housing: House Patient Tobacco Use Status: Never used Tobacco e-Cigarette/Vaping Use: Never Used Have you been hit, kicked, punched, or otherwise hurt by someone within the past year? If so, by whom?: No Are you DNR?: No Advance Directives: No Advance Directives Information Provided: Yes service: No Current occupational status: employed Cognitive needs: No Hearing needs: Yes (bilateral hearing aids) Vision needs: Yes (reading glasses) Meds Allergies Allergy/AdvReac Type Severity Reaction Status Date / Time No Known Allergies Allergy Verified 09/20/24 08:50 Home Medications ?Medication ?Instructions ?Recorded ?Confirmed ?Last Taken ?Type glucosamine HCl 500 mg tablet 500 mg PO DAILY 09/20/24 01/05/25 Unknown History multivitamin 1 tab PO DAILY 01/05/25 01/05/25 Unknown History Exam Height,Weight and Vital Signs: Height 5 ft 8 in Weight 83.007 kg Assessment and Plan Assessment Anesthesia Assessment: Chart Reviewed Documented by User: Dana Gu MD 01/09/25 10:06 PMFSH Past Medical History Medical History Osteoarthritis Hyperlipidemia Family History Family History Mother No problems noted. Father No problems noted. Family history of problems with anesthesia: No Surgical History Surgical History Hx of hernia repair History of colonoscopy (~11/26/17) History of Problems with Anesthesia: No Social History Social History Housing: House Patient Tobacco Use Status: Never used Tobacco e-Cigarette/Vaping Use: Never Used Have you been hit, kicked, punched, or otherwise hurt by someone within the past year? If so, by whom?: No Are you DNR?: No Advance Directives: No Advance Directives Information Provided: Yes service: No Current occupational status: employed Cognitive needs: No Hearing needs: Yes (bilateral hearing aids) Vision needs: Yes (reading glasses) Meds Allergies Allergy/AdvReac Type Severity Reaction Status Date / Time No Known Allergies Allergy Verified 09/20/24 08:50 Home Medications ?Medication ?Instructions ?Recorded ?Confirmed ?Last Taken ?Type glucosamine HCl 500 mg tablet 500 mg PO DAILY 09/20/24 01/05/25 Unknown History multivitamin 1 tab PO DAILY 01/05/25 01/05/25 Unknown History Exam Airway Mallampati Class: II TM Dist: >3cm Neck ROM: Full Heart: rrr Lungs: cta Assessment and Plan Assessment Anesthesia Assessment: Anesthesia Plan Discussed Final Anesthetic Review Family History of Problems with Anesthesia: No History of Problems with Anesthesia: No NPO: Yes ASA Class: II Final Preanesthetic Review: No Changes in Pt Med Stat, Meds/Allgs Chart Reviewed, Consent Obtained/Reviewed and Anes Risks/Benef Reviewed Patient Risk: Low Procedure Risk: Low Anesthetic Plan Anesthetic Plan: MAC: and Agree w/ Assess. and Plan Disposition: Standard PACU
[2025-01-09 09:51] VITALS: BP 133/67; PULSE 84; RESP 18; TEMP 36.4; O2SAT 96; BMI 26.4
[2025-01-09] MEDS: Lactated Ringers 1,000 ML 100 ML IVCONT (10:06)
--- NOTE | 2025-01-09 10:31 | MHC.SHP ---
Pre-Procedural Eval Section A - 24 Hr Update-Section A only Date of Service: 01/09/25 Section B - Complete if H&P > 30 days Chief Complaint: screening Details of Present Illness: see H&P no changes Relevant Family History (Specify if Yes): No Relevant Social History: None Present Medications: see Short Stay Collaborative assessment Medical History: No relevant PMH History of Previous Operations: No relevant previous surgery Allergies: Allergies Allergy/AdvReac Type Severity Reaction Status Date / Time No Known Allergies Allergy Verified 09/20/24 08:50 Review of Systems Sugical H&P ROS: Negative: Constitution, Cardiovascular, Respiratory, Neurological, Psychiatric, Hem-Onc, Allergic/Immunologic, Gastrointestinal, Genitourinary, Musculoskeletal, Integumentary, Endocrine and Eyes/Ears/Nose/Throat Exam Surgical H&P Exam: Normal: HEENT, Normal: Heart, Normal: Lungs, Normal: Extremities, Normal: Abdomen, Normal: Skin and Normal: Neurological Plan Diagnosis/Plan: Unchanged I have reviewed the history and physical and performed a pertinent physical examination on my patient. No changes have occurred unless specified. Time Spent With Patient Time: Total time managing care of this patient today ____ minutes.
[2025-01-09 11:11] VITALS: BP 118/69; RESP 16; TEMP 36.5; O2SAT 97
[2025-01-09 11:15] VITALS: BP 102/70; RESP 16; O2SAT 97
[2025-01-09 11:30] VITALS: BP 111/66; RESP 16; TEMP 36.5; O2SAT 97
--- NOTE | 2025-01-09 12:55 | OP_ITS ---
DATE OF SERVICE: 01/09/2025 SURGEON: Karthikeyan Brown MD INDICATIONS: Colon cancer screening and prior history of adenomatous colon polyps PREOPERATIVE DIAGNOSIS: POSTOPERATIVE DIAGNOSIS: PROCEDURE PERFORMED: Colonoscopy to the terminal ileum with biopsy. ESTIMATED BLOOD LOSS: COMPLICATIONS: ANESTHESIA: Monitored anesthesia care. ASSISTANTS: SPECIMENS: DESCRIPTION OF PROCEDURE: A history and physical was performed. The risks and benefits of the procedure were explained to the patient, and informed consent was obtained. The patient was placed in the left lateral decubitus position. A digital rectal exam was performed and was found to be normal. The Olympus pediatric video colonoscope was introduced into the rectum and advanced to the cecum. The cecum was identified by transillumination, palpation, identification of ileocecal valve. Examination was performed. The scope was removed. He tolerated the procedure well and was returned to the recovery area in stable condition. FINDINGS: The terminal ileum was examined and appeared normal. The visualized colonic mucosa was normal. The quality of the prep was good. A single polyp measuring less than 5 mm was identified in the rectum. This was removed with a biopsy forceps. No other polyps were identified. Retroflexed examination showed small internal hemorrhoids. IMPRESSION: Colon polyp. RECOMMENDATION: Follow up the biopsy results. MD ELBERT Gann/JAHAIRAL / [id number]
== END 2025-01-09 11:56 | disposition home or self-care (01) ==
PROVIDERS: PCP Internal Medicine; Visit Provider Internal Medicine Gastroenterology
PROC: 0DJD8ZZ Inspection of Lower Intestinal Tract, Via Natural or Artificial Opening Endoscopic (ICD-10-PCS; CPT 45378; principal; 2025-01-09 11:20)
DX: Z12.11 Encounter for screening for malignant neoplasm of colon (principal); Z86.0101 Personal history of adenomatous and serrated colon polyps; D12.8 Benign neoplasm of rectum; K64.8 Other hemorrhoids; E78.5 Hyperlipidemia, unspecified; M19.90 Unspecified osteoarthritis, unspecified site; Z98.890 Other specified postprocedural states; Z79.899 Other long term (current) drug therapy
CPT/HCPCS: 45380; 88305; J2704